=== PATIENT | female | born 1980 | race Caucasian/White ===

== ENCOUNTER 2019-02-06 21:40 | Observation (INO) | payer OTHER ==
[~2019-02-06] VITALS: Ht 167.6 cm; Wt 56.7 kg
[2019-02-07 04:39] LABS: Hematocrit 38.3 % (33.0-51.0); Hemoglobin 12.5 g/dL (11.5-16.0); Mean Corpuscular HGB 31.9 pg (26.0-34.0); Mean Corpuscular HGB Conc 32.6 g/dL (31.5-36.5); Mean Corpuscular Volume 98 fL (80-100); Mean Platelet Volume 9.9 fL (9.1-12.4); Platelet Count 358 K/mm3 (150-400); RDW Coefficient Variation 12.5 % (11.7-14.2); RDW Standard Deviation 44.9 fL (35.1-46.3); Red Blood Cell Count 3.92 M/mm3 (3.80-5.20); White Blood Cell Count 8.13 K/mm3 (4.00-11.30)
[2019-02-07 04:58] LABS: Alanine Aminotransfer (ALT/SGP 26 U/L (12-78); Albumin, Blood 3.4 g/dL (3.4-5.0); Albumin/Globulin Ratio 1.1 (0.8-1.8); Alk Phos 58 U/L (50-136); Anion Gap 3 mmol/L (6-16); Aspartate Aminotrans (AST/SGOT 16 U/L (12-37); Bilirubin, Total 0.2 mg/dL (0.1-1.0); Blood Urea Nitrogen 5 mg/dL (8-24); Bun/Creatinine Ratio 8.9 (12.0-20.0); CO2, Blood 28 mmol/L (21-32); Calcium, Blood 7.6 mg/dL (8.5-10.1); Chloride, Blood 113 mmol/L (98-108); Creatinine, Blood 0.56 mg/dL (0.40-1.00); Globulin, Blood 3.2 g/dL (2.2-4.0); Glomerular Filtration Rate >60 (60-); Glucose, Blood 86 mg/dL (70-99); Potassium, Blood 3.2 mmol/L (3.5-5.5); Sodium, Blood 144 mmol/L (136-145); Total Protein, Blood 6.6 g/dL (6.4-8.2)
--- NOTE | 2019-02-07 06:50 | NUR ---
PT ADMITTED TO UNIT AT APPROX 0256 FOR LEFT TIB/FIB FX. PT A&O X4. HR TACHY RANGING FROM 110-120. LLE REDUCED IN ER WITH PLACEMENT OF SPLINT. AMILCAR HAMPTON CONSULTED. FLUIDS INFUSING. NPO FOR POSSIBLE SURGERY. SIGNIFICANT OTHER AT BEDISDE ASSISTING WITH CARE.
--- NOTE | 2019-02-07 09:18 | NUR ---
Pastoral care visit conducted. Pt was resting in bed but alert upon entry. Pt was calm and somber, relaying her current challenges and condition. Empathic presence, inspirational encouragement, and validation provided. Pt requested prayer which was offered congruently. I will remain available for prospective support.
--- NOTE | 2019-02-07 18:00 | NUR ---
SHIFT SUMMARY PT DID NOT HAVE PROCEDURE TODAY. PT TO BE NPO AFTER MIDNIGHT. PT BEEN REPOSITIONED AND ASSISTED WITH ADL'S PRN. PT BEEN MED FOR PAIN. DR KIGN WAS NOTIFIED EARLIER PT WAS REPORTING INCREASED PAIN AFTER USING BEDPAN AND BEING REPOSITOINED. PT REPORTED HAVING NORCO 10'S IN PAST, SEE ORDER. PT LEG BEEN ELEVATED T/O SHIFT.
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
--- NOTE | 2019-02-08 04:30 | NUR ---
SHIFT SUMMARY: PT HAS DONE WELL THIS SHIFT. PAIN MANAGED WITH 50 MCG OF FENTANYL Q4 AND NORCO Q6 PER EMAR. SPLINT TO LLE. SENSATION INTACT. PULSES PALPABLE. CAP REFILL WNL. VOIDING IN BEDPAN WITH ONE ASSIST. PT HAS BEEN NPO SINCE MIDNIGHT FOR PLANNED SURGERY THIS MORNING.
[2019-02-08 05:35] LABS: BASOPHILS ABSOLUTE AUTO 0.05 K/mm3 (0.00-0.23); BASOPHILS PERCENT AUTO 1 % (0-2); EOSINOPHILS ABSOLUTE AUTO 0.09 K/mm3 (0.00-0.68); EOSINOPHILS PERCENT AUTO 1 % (0-6); Hemoglobin 11.7 g/dL (11.5-16.0); IMMATURE GRAN ABSOLUTE AUTO 0.01 K/mm3 (0.00-0.10); IMMATURE GRAN PERCENT AUTO 0 % (0-1); LYMPHOCYTES ABSOLUTE AUTO 2.31 K/mm3 (0.84-5.20); LYMPHOCYTES PERCENT AUTO 35 % (21-46); MONOCYTES ABSOLUTE AUTO 0.47 K/mm3 (0.16-1.47); MONOCYTES PERCENT AUTO 7 % (4-13); Mean Corpuscular HGB 32.2 pg (26.0-34.0); Mean Corpuscular HGB Conc 32.5 g/dL (31.5-36.5); Mean Corpuscular Volume 99 fL (80-100); Mean Platelet Volume 9.8 fL (9.1-12.4); NEUTROPHILS ABSOLUTE AUTO 3.59 K/mm3 (1.96-9.15); NEUTROPHILS PERCENT AUTO 55 % (41-73); Platelet Count 295 K/mm3 (150-400); RDW Coefficient Variation 12.5 % (11.7-14.2); RDW Standard Deviation 45.8 fL (35.1-46.3); Red Blood Cell Count 3.63 M/mm3 (3.80-5.20); White Blood Cell Count 6.52 K/mm3 (4.00-11.30)
[2019-02-08 05:53] LABS: Alanine Aminotransfer (ALT/SGP 21 U/L (12-78); Albumin, Blood 2.9 g/dL (3.4-5.0); Alk Phos 61 U/L (50-136); Anion Gap 3 mmol/L (6-16); Aspartate Aminotrans (AST/SGOT 10 U/L (12-37); Bilirubin, Total 0.8 mg/dL (0.1-1.0); Blood Urea Nitrogen 11 mg/dL (8-24); CO2, Blood 25 mmol/L (21-32); Calcium, Blood 7.9 mg/dL (8.5-10.1); Chloride, Blood 110 mmol/L (98-108); Creatinine, Blood 0.55 mg/dL (0.40-1.00); Glomerular Filtration Rate >60 (60-); Glucose, Blood 82 mg/dL (70-99); Magnesium, Blood 2.4 mg/dL (1.6-2.4); Potassium, Blood 3.9 mmol/L (3.5-5.5); Sodium, Blood 138 mmol/L (136-145); Total Protein, Blood 5.9 g/dL (6.4-8.2)
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
--- NOTE | 2019-02-08 12:57 | NUR ---
Pastoral care visit conducted. Pt was alert and amiable as she was finishing a snack. She gives report as to her surgery and her current well-being. Pt extended appreciation for pre-op prayer and requested post-op prayer accordingly. Ministry of presence, inspirational encouragement, and consolatory prayer offered. I will continue to remain available for subsequent pastoral support.
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
--- NOTE | 2019-02-08 18:33 | NUR ---
SHIFT SUMMARY PT POD 0 TIB/FIB FX REPAIR. PT SPLINT/KYM WRAP C/D/I, LLE ELEVATED. PAIN MANAGED WITH 10MG ROXICODONE Q4, TORADOL, AND TYLENOL WITH 50 MCG FENT FOR BREAKTHRU PAIN. PT C/O MUSCLE SPASMS IN LLE-MESSAGE LEFT FOR BOTH DR KING AND DR LYNCH TO REQUEST MUSCLE RELAXER AT APROX 1830. ORDER FOR PT TO WORK WITH PT TOMORROW, NWB LLE.
--- NOTE | 2019-02-09 06:20 | NUR ---
SHIFT SUMMARY: PT POD #1 FOR RODDING OF LEFT LEG. KYM WRAP CDI WITH ICE IN PLACE. PULSES PALPABLE, CAP REFILL WNL. PT DENIES N/T. EXTREMITY ELEVATED ON PILLOWS. LEFT LEG NWB. PAIN MANAGED WITH TORADOL, TYLENOL AND OXY PER EMAR. GIVEN MORPHINE TWICE FOR BREAKTHROUGH PAIN. OUT OF BED TO BSC ONCE WITH MINIMAL ASSISTANCE. ALSO USING BEDPAN PRN. VOIDING WELL. WILL WORK WITH PHYSICAL THERAPY TODAY.
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
--- NOTE | 2019-02-09 18:20 | NUR ---
shift summary: vss, no acute changes. pt tolerated regular diet, urinated >400 ml this shift. pt worked with physical therapy today, up to chair x 3 this shift. up to bathroom with standby assist with standby assist and fww and gait. pt received stop and consult from [employer] staff. pt is currently at the Narcotics Anonymous meeting.
--- NOTE | 2019-02-09 18:30 | NUR ---
shift summary: post op vss and complete. pt tolerated PO intake and is ambulating in hallway with x 3. pt states her pain is controlled to a tolerable level per mar and ambulation. pt has had family visiting her. Laparascopic sites c/d/i, dried blood from immediately following surgery. pt has changed her own maldonado pad, with small to moderate amout of bleeding, wnl. lerma catheter is remained patent/draining of clear yellow urine.
--- NOTE | 2019-02-10 06:31 | NUR ---
SUMMARY DRSG REMAINS C/D/I. LEFT LEG ELEVATED ON PILLOWS, INTERMITTENT ICE PLACED PT ALLOWED. CIRC REMAINS WNL. PT DENIES N/T, WIGGLES TOES. 1 ASSIST USING FWW/GAIT BELT. PAIN MANAGED WITH PO PAIN MEDICINE PRN PER EMAR. PT IS VOIDING WNL. TOLERATING PO INTAKE. CALL LIGHT IN REACH, WCTM
--- NOTE | 2019-02-10 13:25 | NUR ---
PT MEDICATED WITH TORADOL AND TYLENOL PER EMAR.
[2019-02-10] MEDS ORDERED: Colace100 MG PO (15:54)
[2019-02-10] MEDS ORDERED: Norco 10-325 T1 EACH PO (15:55)
[2019-02-10] MEDS ORDERED: NICO21TP TOP (15:56)
--- NOTE | 2019-02-10 16:30 | NUR ---
DISCHARGE: PT DC WITH BPA at this time. care management has arranged follow up with pcp to establish care and arrange home health to continue therapy. pt medications called to pharmacy. script for narcotic pain meds given. iv dc'd wnl. verbalized understanding of medications, follow up and instructions. pt left via wheelchair to car with belongings.
--- NOTE | 2019-02-10 18:32 | NUR ---
Bridget asked me to visit before her discharge. We spoke at length about the neccessary life-style changes she is planning to make now. She appears to recognize a clear path for recovery and has made some friends in the local 12-step programs. I provided application counselor and encouragement to good effect.
== END 2019-02-10 16:41 | disposition home or self-care (01) ==
LOC: ER 21:40 → SURS 21:41 → ER 02-07 00:57 → SURS 02-07 03:08
PROVIDERS: Internal Medicine; Orthopaedic Surgery; ADMIT Internal Medicine
PROC: 0QSH06Z Reposition Left Tibia with Intramedullary Internal Fixation Device, Open Approach (ICD-10-PCS; principal; 2019-02-08 09:00)
PROC: 0QSK06Z Reposition Left Fibula with Intramedullary Internal Fixation Device, Open Approach (ICD-10-PCS; principal; 2019-02-08 09:00)
DX: S82.202A Unspecified fracture of shaft of left tibia, initial encounter for closed fracture (principal); S82.402A Unspecified fracture of shaft of left fibula, initial encounter for closed fracture; F17.210 Nicotine dependence, cigarettes, uncomplicated; F43.10 Post-traumatic stress disorder, unspecified; W17.81XA Fall down embankment (hill), initial encounter
CPT/HCPCS: 27825; 36415; 73590; 80053; 83735; 85025; 85027; 96372; 96374-59; 96375; 96376; 97110; 97116; 97161; 97530; 99152; 99284-25; A9270; C1713; C1769; G0378; J0690; J1100; J1650; J1885; J2250; J2270; J2405; J2704; J2765; J3010; J7030

== ENCOUNTER 2019-02-26 09:45 | Emergency (ER) | payer OTHER ==
[~2019-02-26] VITALS: Ht 170.2 cm; Wt 54.4 kg
[~2019-02-26 09:45] MED LIST: Colace100 MG PO; NICO21TP TOP; Norco 10-325 T1 EACH PO
== END 2019-02-26 12:40 | disposition home or self-care (01) ==
LOC: ER 09:45
DX: G89.18 Other acute postprocedural pain (principal); M79.672 Pain in left foot; F32.9 Major depressive disorder, single episode, unspecified; F17.210 Nicotine dependence, cigarettes, uncomplicated
CPT/HCPCS: 73630; 99283-25

== ENCOUNTER 2019-03-02 05:29 | Emergency (ER) | payer OTHER ==
[~2019-03-02] VITALS: Ht 170.2 cm; Wt 54.4 kg
== END 2019-03-02 07:36 | disposition home or self-care (01) ==
LOC: ER 05:29
DX: F15.10 Other stimulant abuse, uncomplicated (principal); F17.210 Nicotine dependence, cigarettes, uncomplicated
CPT/HCPCS: 99282

== ENCOUNTER 2019-03-14 08:47 | Emergency (ER) | payer OTHER ==
[~2019-03-14] VITALS: Ht 170.2 cm; Wt 54.4 kg
[2019-03-14] MEDS ORDERED: CRUTCH4 XX (09:29)
== END 2019-03-14 10:07 | disposition home or self-care (01) ==
LOC: ER 08:47
DX: Z48.89 Encounter for other specified surgical aftercare (principal); F17.210 Nicotine dependence, cigarettes, uncomplicated
CPT/HCPCS: 29515; 99283-25